=== PATIENT | female | born 1995 | race Caucasian/White ===

== ENCOUNTER 2020-01-02 09:18 | Emergency (ER) | payer OTHER ==
[~2020-01-02] VITALS: Ht 157.5 cm; Wt 54.4 kg
[2020-01-02] MEDS ORDERED: OBSTETRIX DHA1 EACH (09:26)
== END 2020-01-02 11:33 | disposition home or self-care (01) ==
LOC: ER 09:18
DX: R09.81 Nasal congestion (principal)

== ENCOUNTER → 2020-01-10 | Outpatient (CLI) | payer OTHER ==
[~2020-01-10] MED LIST: OBSTETRIX DHA1 EACH
== END | disposition home or self-care (01) ==
LOC: PRENATAL 10:30
PROVIDERS: ATTEND Obstetrics & Gynecology
DX: O35.0XX1 Maternal care for (suspected) central nervous system malformation in fetus, fetus 1 (principal); O35.3XX1 Maternal care for (suspected) damage to fetus from viral disease in mother, fetus 1; O09.92 Supervision of high risk pregnancy, unspecified, second trimester

== ENCOUNTER 2020-05-29 05:59 | Inpatient (IN) | payer OTHER ==
[~2020-05-29] VITALS: Ht 154.9 cm; Wt 69.9 kg
== END 2020-05-31 18:27 | disposition home or self-care (01) | DRG 788 ==
LOC: LDR 05:59 → O/R 13:41 → OB/GYN 14:26
PROVIDERS: ADMIT Obstetrics & Gynecology; ATTEND Obstetrics & Gynecology
PROC: 4A1HXCZ Monitoring of Products of Conception, Cardiac Rate, External Approach (ICD-10-PCS; 2020-05-29)
PROC: 10D00Z1 Extraction of Products of Conception, Low, Open Approach (ICD-10-PCS; principal; 2020-05-29 12:00)
DX: O82 Encounter for cesarean delivery without indication (principal); Z3A.38 38 weeks gestation of pregnancy; Z22.330 Carrier of Group B streptococcus; Z37.0 Single live birth